=== PATIENT | male | born 1940 | race Caucasian/White ===

== ENCOUNTER 2016-12-12 18:41 | Emergency (ER) | payer MEDICARE, BC ==
[2016-12-12 19:18] VITALS: BP 121/75
--- NOTE | 2016-12-12 19:20 | EDM.PDOC ---
ED HPI GENERAL MEDICAL PROBLEM - General Chief Complaint: Eye Problems Stated Complaint: FUNNY VISION IN LEFT EYE Time Seen by Provider: 12/12/16 19:09 Source of Information: Reports: Patient, RN Notes Reviewed History Limitations: Reports: No Limitations - History of Present Illness INITIAL COMMENTS - FREE TEXT/NARRATIVE: 76-year-old male with visual disturbance No started about 9:00 this morning after he had been up a couple of hours. Involving left eye only It feels like there is a cobweb in front of his left eye. However he's been able to see and drive without difficulty, drove himself here, and also able to read without difficulty. No pain or discharge in the eye No recent illness or infection or injury Otherwise he feels well. No loss of vision No history of similar problem previously Last seen by his tool specialist about 2 years ago, was told he had early cataracts, no treatment needed at that time. He does wear glasses, does not wear contacts. - Related Data Allergies Allergy/AdvReac Type Severity Reaction Status Date / Time No Known Allergies Allergy Verified 03/14/15 10:05 Home Meds: Home Meds Aspirin [Eric Chewable] 81 mg PO DAILY 11/13/13 [History] Ibuprofen 400 mg PO Q4H PRN 11/13/13 [History] Omeprazole [Omeprazole] 20 mg PO DAILY 11/13/13 [History] Multivitamin with Minerals [Multiple Vitamin] 1 tab PO DAILY 07/21/14 [History] Metoprolol Tartrate [Lopressor] 25 mg PO Q12HR 03/14/15 [History] amLODIPine Besylate/Benazepril [Lotrel 5-40 MG] 1 tab PO DAILY 03/14/15 [History ] atorvaSTATin [Lipitor] 40 mg PO DAILY 03/14/15 [History] Past Medical History - Past Surgical History Other Male Surgeries/Procedures: Prostectomy Social & Family History - Tobacco Use Smoking Status *Q: Former Smoker Years of Tobacco use: 20 Used Tobacco, but Quit: Yes Month Tobacco Last Used: years ago Second Hand Smoke Exposure: No - Alcohol Use Days Per Week of Alcohol Use: 1 Number of Drinks Per Day: 1 Total Drinks Per Week: 1 - Recreational Drug Use Recreational Drug Use: No ED ROS GENERAL - Review of Systems Review Of Systems: ROS reveals no pertinent complaints other than HPI. HEENT: Reports: Vision Change. Denies: Eye Discharge, Eye Pain ED EXAM GENERAL W FULL EYE - Physical Exam Exam: See Below Exam Limited By: No Limitations General Appearance: Alert, No Apparent Distress, Other (Vital signs are normal, he appears healthy and in no distress) Eye Exam: Bilateral Eye: Normal Fundi, Normal Inspection Visual Acuity (R) 20/: 40 Visual Acuity (L) 20/: 30 Eyelids: Bilateral: Normal Appearance Conjunctiva & Sclera: Bilateral: Normal Appearance, Other (No foreign body, fluorescing negative) Cornea Exam: Bilateral: Normal Appearance, Examined with Flourescein (No uptake) , Other (No haziness of the anterior chamber) Extraocular Movements: Bilateral: Intact Pupils: Normal Accommodation Pupillary Size: Bilateral: 6 mm (Equally reactive) Pupillary Reaction: Bilateral: Brisk Anterior Chamber: Bilateral: Normal Appearance Posterior Chamber: Bilateral: Normal Funduscopic Ears: Normal External Exam Respiratory/Chest: No Respiratory Distress Neurological: Alert, Oriented, No Motor/Sensory Deficits Psychiatric: Normal Affect Skin Exam: No Rash Course - Vital Signs Last Recorded V/S: Last Vital Signs Temp 37.0 C 12/12/16 19:18 Pulse 68 12/12/16 19:18 Resp 16 12/12/16 19:18 BP 121/75 12/12/16 19:18 Pulse Ox 95 12/12/16 19:18 - Re-Assessments/Exams Free Text/Narrative Re-Assessment/Exam: 12/12/16 19:34 76-year-old male with visual disturbance of the left eye, however physical exam shows his vision in his left eye is better than the right. He was able to read and drive without difficulty. Possible early cataracts Follow-up with tool specialist within 1 week recommended Departure - Departure Time of Disposition: 19:29 Disposition: Home, Self-Care 01 Condition: Good Clinical Impression: Subjective vision disturbance, left eye - Discharge Information Instructions: Blurred Vision Referrals: Cody Zee PA [Primary Care Provider] - Forms: ED Department Discharge Additional Instructions: Examination of your eyes shows no sign of damage injury retinal detachment or foreign body. Your vision in your affected eye is actually better than the other. It's strongly recommended that you see your tool specialist within the next week for reevaluation of your left eye. If you have sudden loss of vision in your eye, return to emergency promptly
== END 2016-12-12 19:50 | disposition home or self-care (01) ==
LOC: JP.ED 18:41
DX: H53.10 Unspecified subjective visual disturbances (principal); Z79.82 Long term (current) use of aspirin; Z79.899 Other long term (current) drug therapy; Z87.891 Personal history of nicotine dependence
CPT/HCPCS: 99283

== ENCOUNTER 2017-11-16 18:59 | Emergency (ER) | payer MEDICARE, BC ==
[2017-11-16 20:11] VITALS: BP 153/81
--- NOTE | 2017-11-16 20:49 | EDM.PDOC ---
ED HPI GENERAL MEDICAL PROBLEM - General Chief Complaint: Fever Stated Complaint: HIGH FEVER, COUGH Time Seen by Provider: 11/16/17 20:40 Source of Information: Reports: Patient, Family, Old Records, RN History Limitations: Reports: No Limitations - History of Present Illness INITIAL COMMENTS - FREE TEXT/NARRATIVE: 77 yo male presents with intermittent low grade fevers for a couple days. Has a rare mild cough. Had a cold last week. No other sx's other than a mild JANSEN. Has not been to the clinic. No self tx. No rash. Has exposure to ticks. Onset: Gradual Onset Date: 11/14/17 Duration: Day(s):, Waxing/Waning Location: Reports: Generalized Quality: Reports: Other (no pain) Severity: Mild Improves with: Reports: None Worsens with: Reports: None Context: Reports: Other (see HPI) Associated Symptoms: Reports: Cough (rare), Fever/Chills (low grade intermittently). 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 (see below) (none) Generalized Pain Score (Numeric/FACES): 6 - Related Data Allergies Allergy/AdvReac Type Severity Reaction Status Date / Time No Known Allergies Allergy Verified 11/16/17 19:59 Home Meds: Home Meds Aspirin [Eric Chewable] 81 mg PO DAILY 11/13/13 [History] Ibuprofen 400 mg PO Q4H PRN 11/13/13 [History] Omeprazole 20 mg PO DAILY 11/13/13 [History] Multivitamin with Minerals [Multiple Vitamin] 1 tab PO DAILY 07/21/14 [History] Metoprolol Tartrate [Lopressor] 25 mg PO Q12HR 03/14/15 [History] amLODIPine Besylate/Benazepril [Lotrel 5-40 MG] 1 tab PO DAILY 03/14/15 [History ] atorvaSTATin [Lipitor] 40 mg PO DAILY 03/14/15 [History] Nitroglycerin [Nitrostat] 1 tab PO ASDIRECTED PRN 11/16/17 [History] Past Medical History HEENT History: Reports: Hard of Hearing Cardiovascular History: Reports: Hypertension, Other (See Below) Other Cardiovascular History: angio Oncologic (Cancer) History: Reports: Basal Cell Carcinoma - Infectious Disease History Infectious Disease History: Reports: Chicken Pox, Measles, Mumps - Past Surgical History HEENT Surgical History: Reports: Cataract Surgery GI Surgical History: Reports: Appendectomy, Hernia, Inguinal Other Male Surgeries/Procedures: Prostectomy Musculoskeletal Surgical History: Reports: Knee Replacement Social & Family History - Family History Family Medical History: Noncontributory - Tobacco Use Smoking Status *Q: Never Smoker - Caffeine Use Caffeine Use: Reports: None - Recreational Drug Use Recreational Drug Use: No ED ROS GENERAL - Review of Systems Review Of Systems: See Below Constitutional: Reports: Fever HEENT: Reports: No Symptoms Respiratory: Reports: Cough Cardiovascular: Reports: No Symptoms Endocrine: Reports: No Symptoms GI/Abdominal: Reports: No Symptoms : Reports: No Symptoms Musculoskeletal: Reports: No Symptoms Skin: Reports: No Symptoms Neurological: Reports: Headache (mild) ED EXAM, SEPSIS - Physical Exam Exam: See Below Exam Limited By: No Limitations General Appearance: Alert, WD/WN, No Apparent Distress Eye Exam: Bilateral Eye: Normal Inspection, PERRL Ears: Normal External Exam, Normal Canal, Hearing Grossly Normal, Other ( hearing aid present) Nose: Normal Inspection, Normal Mucosa, No Blood Throat/Mouth: Normal Inspection, Normal Lips, Normal Oropharynx, Normal Voice, No Airway Compromise Head: Atraumatic, Normocephalic Neck: Normal Inspection, Supple, Non-Tender Respiratory/Chest: No Respiratory Distress, Lungs Clear, Normal Breath Sounds, No Accessory Muscle Use Cardiovascular: Regular Rate, Rhythm Back: Normal Inspection. No: CVA Tenderness (R), CVA Tenderness (L) Extremities: Normal Inspection, Normal Range of Motion, Non-Tender, No Pedal Edema Neurological: Alert, Oriented, CN II-XII Intact, Normal Cognition, No Motor/ Sensory Deficits Psychiatric: Normal Affect, Normal Mood Skin: Warm, Dry, Intact, Normal Color, No Rash Lymphatic: Bilateral: No Adenopathy Course - Vital Signs Last Recorded V/S: Last Vital Signs Temp 37.9 C 11/16/17 20:10 Pulse 84 11/16/17 20:10 Resp 18 11/16/17 20:10 BP 153/81 H 11/16/17 20:10 Pulse Ox 93 L 11/16/17 20:10 - Orders/Labs/Meds Orders: Active Orders 24 hr Category Date Time Status Chest 2V [CR] Stat Exams 11/16/17 21:14 Ordered UA W/MICROSCOPIC [URIN] Stat Lab 11/16/17 20:33 Ordered Labs: Laboratory Tests 11/16/17 11/16/17 Range/Units 20:33 20:45 WBC 8.7 (4.5-11.0) K/uL RBC 4.41 (4.30-5.90) M/uL Hgb 13.2 (12.0-15.0) g/dL Hct 40.4 (40.0-54.0) % MCV 92 (80-98) fL MCH 30 (27-31) pg MCHC 33 (32-36) % Plt Count 144 L (150-400) K/uL Urine Color Ness Urine Appearance Clear Urine pH 5.0 (4.5-8.0) Ur Specific [place] 1.020 (1.008-1.030) Urine Protein 30 H (NEGATIVE) mg/dL Urine Glucose (UA) Normal (NEGATIVE) mg/dL Urine Ketones 15 H (NEGATIVE) mg/dL Urine Occult Blood Large (NEGATIVE) Urine Nitrite Negative (NEGAITVE) Urine Bilirubin Small (NEGATIVE) Urine Urobilinogen 1 (NORMAL) mg/dL Ur Leukocyte Esterase Negative (NEGATIVE) Urine RBC 10-20 H (0-5) Urine WBC 0-5 (0-5) Ur Epithelial Cells Few Amorphous Sediment Few Urine Bacteria Rare Urine Mucus Not seen - Radiology Interpretation Free Text/Narrative:: CXR-neg Departure - Departure Time of Disposition: 21:32 Disposition: Home, Self-Care 01 Condition: Good Clinical Impression: Viral illness - Discharge Information Referrals: Cody Zee PA [Primary Care Provider] - Forms: ED Department Discharge - My Orders Last 24 Hours: My Active Orders 11/16/17 20:33 UA W/MICROSCOPIC [URIN] Stat 11/16/17 21:14 Chest 2V [CR] Stat - Assessment/Plan Last 24 Hours: My Active Orders 11/16/17 20:33 UA W/MICROSCOPIC [URIN] Stat 11/16/17 21:14 Chest 2V [CR] Stat
--- NOTE | 2017-11-17 08:57 | CR ---
Chest 2V INDICATION: cough COMPARISON: 03/16/2015 FINDINGS: Two views. Heart size normal. There may be scattered infiltrates in both lungs and a nodular density in the left upper lung. Also nodular density projected in the anterior clear space on the lateral view. No pleural effusion. Previous findings of CHF have cleared. Recommend CT chest without IV contrast for further evaluation of the above findings.
== END 2017-11-16 21:52 | disposition home or self-care (01) ==
LOC: JP.ED 18:59
DX: B34.9 Viral infection, unspecified (principal); R31.29 Other microscopic hematuria; I10 Essential (primary) hypertension; Z79.82 Long term (current) use of aspirin; Z79.899 Other long term (current) drug therapy
CPT/HCPCS: 36415; 71046; 71046-26; 81001; 85027; 99284

== ENCOUNTER 2018-09-17 07:53 | Day surgery (SDC) | payer MEDICARE ==
[2018-09-17] MEDS ORDERED: Lactated Ringers 1,000 ML IV SCH (08:30)
[2018-09-17] MEDS ORDERED: fentaNYL 100 MCG/2 ML SDV ONE (08:50)
[2018-09-17] MEDS ORDERED: Propofol 200 MG/20 ML SDV ONE ×2 (08:50→09:55)
[2018-09-17] MEDS ORDERED: Midazolam 1 MG/ML 2 ML SDV ONE (08:50)
[2018-09-17 11:11] VITALS: BP 98/60
--- NOTE | 2018-09-18 08:15 | OR ---
DATE OF PROCEDURE: 09/17/2018 PREOPERATIVE DIAGNOSIS: History of colon polyps. POSTOPERATIVE DIAGNOSIS: Small right colon polyp, history of colon polyps. PROCEDURE: Colonoscopy to the cecum. SURGEON: Raphael Lora MD ANESTHESIA: IV anesthesia with monitored anesthesia care. INDICATION: This 78-year-old white male is referred for a colonoscopy because of a history of colon polyps. His last colonoscopic exam was done in 2014. I counseled him for the procedure, including risks and alternatives, and he gave his informed consent to proceed. DESCRIPTION OF PROCEDURE: The patient was placed in the left lateral decubitus position. IV anesthesia was administered by the Anesthesia Service. Time-out was held. A rectal exam was performed, which was unremarkable. The flexible video Olympus colonoscope was introduced through his anus, up his rectum, and out his colon all the way to the cecum. Once the cecum was reached, the scope was slowly withdrawn examining the mucosa throughout. In the right colon, we saw a small polyp, which was removed with a couple of bites of the biopsy forceps. The scope was withdrawn further with no other lesions noted. The scope was retroflexed in the rectum with the distal rectum appearing unremarkable. The scope was straightened and removed. He tolerated the procedure well. Raphael Lora MD /[id number] MTDD
== END 2018-09-17 11:42 | disposition home or self-care (01) ==
LOC: JP.SDS 07:53
PROVIDERS: ATTEND Surgery
DX: Z12.11 Encounter for screening for malignant neoplasm of colon (principal); K63.5 Polyp of colon; I25.10 Atherosclerotic heart disease of native coronary artery without angina pectoris; I48.92 Unspecified atrial flutter; I13.0 Hypertensive heart and chronic kidney disease with heart failure and stage 1 through stage 4 chronic kidney disease, or unspecified chronic kidney disease; I50.9 Heart failure, unspecified; N18.9 Chronic kidney disease, unspecified; R73.03 Prediabetes; F17.200 Nicotine dependence, unspecified, uncomplicated; E78.5 Hyperlipidemia, unspecified; E66.9 Obesity, unspecified; Z68.28 Body mass index [BMI] 28.0-28.9, adult; Z86.010 Personal history of colon polyps
CPT/HCPCS: 45380; 88305; J2250; J2704; J3010; J7120

== ENCOUNTER 2022-06-02 15:24 | Emergency (ER) | payer MEDICARE ==
[2022-06-02 16:31] LABS: ESTIMATED GFR 50 mL/min (>60)
[2022-06-02] MEDS ORDERED: Azithromycin 500 MG in Sodium Chloride 0.9% 250 ML IV ONE (16:39)
[2022-06-02] MEDS ORDERED: cefTRIAXone 1 GM in Sodium Chloride 0.9% 50 ML IV ONE (16:39)
[2022-06-02 17:43] LABS: CORONAVIRUS COVID-19 NAA NEGATIVE (NEGATIVE)
[2022-06-02 22:40] VITALS: BP 107/58; PULSE 71
== END 2022-06-02 20:22 | disposition home or self-care (01) ==
LOC: JP.ED 15:24
DX: J18.9 Pneumonia, unspecified organism (principal); R04.2 Hemoptysis; I48.92 Unspecified atrial flutter; I25.10 Atherosclerotic heart disease of native coronary artery without angina pectoris; I13.0 Hypertensive heart and chronic kidney disease with heart failure and stage 1 through stage 4 chronic kidney disease, or unspecified chronic kidney disease; N18.30 Chronic kidney disease, stage 3 unspecified; I50.9 Heart failure, unspecified; I48.91 Unspecified atrial fibrillation; E66.9 Obesity, unspecified; Z68.30 Body mass index [BMI] 30.0-30.9, adult; Z79.01 Long term (current) use of anticoagulants; Z79.82 Long term (current) use of aspirin; Z79.899 Other long term (current) drug therapy; Z20.822 Contact with and (suspected) exposure to COVID-19
CPT/HCPCS: 0241U; 36415; 71250; 71250-26; 80053; 83880; 84145; 85025; 85610; 96365; 96367; 99284; 99285-25; J0456; J0696; J7050

== ENCOUNTER 2022-10-11 10:12 | Emergency (ER) | payer MEDICARE ==
[2022-10-11 10:36] VITALS: BP 149/69; PULSE 61
== END 2022-10-11 15:13 ==
LOC: JP.ED 10:12
DX: S12.112A Nondisplaced Type II dens fracture, initial encounter for closed fracture (principal); I48.91 Unspecified atrial fibrillation; I10 Essential (primary) hypertension; M19.90 Unspecified osteoarthritis, unspecified site; Z79.899 Other long term (current) drug therapy; Z79.01 Long term (current) use of anticoagulants; Z79.82 Long term (current) use of aspirin; Z87.891 Personal history of nicotine dependence; W01.0XXA Fall on same level from slipping, tripping and stumbling without subsequent striking against object, initial encounter
CPT/HCPCS: 70450; 70486; 72125; 76377; 99284

== ENCOUNTER 2023-03-07 19:46 | Emergency (ER) | payer MEDICARE ==
[2023-03-07 21:33] LABS: BASOPHILS ABSOLUTE AUTO 0.04 K/uL (0.00-0.10); BASOPHILS PERCENT AUTO 0.5 % (0.1-1.3); EOSINOPHILS PERCENT AUTO 12.4 % (0.0-5.4); HEMATOCRIT 40.6 % (38.4-49.7); HEMOGLOBIN 13.8 g/dL (12.9-16.9); IMMATURE GRAN PERCENT AUTO 0.1 % (0.0-0.7); LYMPHOCYTES PERCENT AUTO 15.1 % (11.4-47.7); MEAN CORPUSCULAR HEMOGLOBIN 32.9 pg (31.6-35.5); MEAN CORPUSCULAR VOLUME 96.7 fL (81.4-99.0); MONOCYTES ABSOLUTE AUTO 0.53 K/uL (0.20-0.90); MONOCYTES PERCENT AUTO 7.3 % (3.3-12.6); NEUTROPHILS PERCENT AUTO 64.6 % (40.0-78.1); PLATELET COUNT,PLT 121 K/uL (130-375); WHITE BLOOD CELL COUNT,WBC 7.3 K/uL (3.2-11.0)
[2023-03-07 21:34] LABS: IMMATURE GRAN ABSOLUTE AUTO 0.01 K/uL (0.00-0.23)
[2023-03-07 21:49] LABS: ANION GAP 11.7 mmol/L (5.0-14.0); C-REACTIVE PROTEIN 0.27 mg/dL (0.0-0.3); CALCIUM 8.8 mg/dL (8.5-10.1); CREATININE 1.2 mg/dL (0.8-1.3); EST CRCL DRUG DOSING (CG) 49.85 mL/min; POTASSIUM,K 3.7 mmol/L (3.6-5.2)
[2023-03-07] MEDS ORDERED: Albuterol/Ipratropium 3.0-0.5 MG/3 ML Neb Soln NEB ONE (22:03)
[2023-03-07 22:37] VITALS: BP 150/64; PULSE 55
== END 2023-03-07 22:39 | disposition home or self-care (01) ==
LOC: JP.ED 19:46
DX: J06.9 Acute upper respiratory infection, unspecified (principal); R05.9 Cough, unspecified; I48.91 Unspecified atrial fibrillation; I10 Essential (primary) hypertension
CPT/HCPCS: 36415; 71046; 71046-26; 80048; 85025; 86140; 94640; 99285; J7620

== ENCOUNTER 2023-03-12 18:06 | Emergency (ER) | payer MEDICARE ==
[2023-03-12 18:19] VITALS: BP 110/63; PULSE 74
== END 2023-03-12 19:27 | disposition home or self-care (01) ==
LOC: JP.ED 18:06
DX: J06.9 Acute upper respiratory infection, unspecified (principal); B97.89 Other viral agents as the cause of diseases classified elsewhere; I10 Essential (primary) hypertension; Z87.891 Personal history of nicotine dependence; Z79.82 Long term (current) use of aspirin; Z79.899 Other long term (current) drug therapy
CPT/HCPCS: 99283

== ENCOUNTER 2024-02-11 11:56 | Emergency (ER) | payer MEDICARE | END 2024-02-11 12:28 | disposition left against medical advice (07) | LOC: JP.ED 11:56 | DX: Z53.21 Procedure and treatment not carried out due to patient leaving prior to being seen by health care provider (principal) ==

== ENCOUNTER 2025-01-09 07:47 | Day surgery (SDC) | payer MEDICARE ==
[2025-01-09] MEDS ORDERED: Propofol 200 MG/20 ML SDV ONE ×2 (07:52→09:19)
[2025-01-09 08:29] VITALS: PULSE 70
[2025-01-09] MEDS: Lactated Ringers 1,000 ML IV SCH (08:38)
[2025-01-09 10:56] VITALS: BP 161/89
== END 2025-01-09 11:01 | disposition home or self-care (01) ==
LOC: JP.SDS 07:47
PROVIDERS: ATTEND Surgery
DX: Z12.11 Encounter for screening for malignant neoplasm of colon (principal); K63.89 Other specified diseases of intestine; I11.0 Hypertensive heart disease with heart failure; I50.9 Heart failure, unspecified; I25.10 Atherosclerotic heart disease of native coronary artery without angina pectoris; E66.9 Obesity, unspecified
CPT/HCPCS: G0121; J2704; J7120

== ENCOUNTER 2025-02-25 08:55 | Emergency (ER) | payer MEDICARE ==
[2025-02-25 10:09] LABS: BASOPHILS ABSOLUTE AUTO 0.04 K/uL (0.00-0.10); BASOPHILS PERCENT AUTO 0.7 % (0.1-1.3); EOSINOPHILS ABSOLUTE AUTO 0.09 K/uL (0.00-0.40); EOSINOPHILS PERCENT AUTO 1.6 % (0.0-5.4); IMMATURE GRAN PERCENT AUTO 0.2 % (0.0-0.7); LYMPHOCYTES ABSOLUTE AUTO 1.25 K/uL (0.8-3.3); LYMPHOCYTES PERCENT AUTO 21.7 % (11.4-47.7); MONOCYTES ABSOLUTE AUTO 0.56 K/uL (0.20-0.90); MONOCYTES PERCENT AUTO 9.7 % (3.3-12.6); NEUTROPHILS ABSOLUTE AUTO 3.81 K/uL (1.0-7.6); NEUTROPHILS PERCENT AUTO 66.1 % (40.0-78.1); PLATELET COUNT,PLT 115 K/uL (130-375); RED BLOOD CELL COUNT 4.22 M/uL (4.14-5.76); WHITE BLOOD CELL COUNT,WBC 5.8 K/uL (3.2-11.0)
[2025-02-25 10:15] LABS: IMMATURE GRAN ABSOLUTE AUTO 0.01 K/uL (0.00-0.23)
[2025-02-25 10:28] LABS: A/G RATIO 1.3 (1.2-2.2); ALANINE AMINOTRANSFERASE,ALT 36 U/L (12-78); ASPARTATE AMNIOTRANSFERASE,AST 29 U/L (15-37); BILIRUBIN TOTAL 1.5 mg/dL (0.2-1.0); BLOOD UREA NITROGEN,BUN 23 mg/dL (7-18); CARBON DIOXIDE,CO2 26 mmol/L (21-32); CHLORIDE,CL 105 mmol/L (100-108); CREATININE 1.3 mg/dL (0.8-1.3); EST CRCL DRUG DOSING (CG) 43.05 mL/min; ESTIMATED GFR 55 mL/min (>60); GLUCOSE RANDOM 104 mg/dL (74-106); POTASSIUM,K 3.9 mmol/L (3.6-5.2); PROTEIN TOTAL,TP 7.3 g/dL (6.4-8.2); SODIUM,NA 141 mmol/L (140-148)
[2025-02-25] MEDS: Ketorolac 30 MG/ML SDV IM ONE (11:05)
[2025-02-25 11:21] VITALS: BP 144/90; PULSE 70
== END 2025-02-25 11:28 | disposition home or self-care (01) ==
LOC: JP.ED 08:55
DX: M79.604 Pain in right leg (principal); I10 Essential (primary) hypertension; E78.00 Pure hypercholesterolemia, unspecified; Z90.49 Acquired absence of other specified parts of digestive tract; Z87.891 Personal history of nicotine dependence; Z79.82 Long term (current) use of aspirin; Z79.899 Other long term (current) drug therapy
CPT/HCPCS: 36415; 73590; 80053; 83605; 85025; 86140; 96372; 99284; J1885